=== PATIENT | male | born 1960 | race Caucasian/White ===

== ENCOUNTER 2024-05-27 21:08 | Inpatient (IN) | payer MEDICAID, OTHER ==
[~2024-05-27] VITALS: Ht 152.4 cm; Wt 58.5 kg
[2024-05-27 21:29] VITALS: BP_SYST 138; PULSE 92; RESP 20; TEMP 97.8; O2SAT 100
[2024-05-27 21:49] LABS: BASOPHILS # (AUTO) 0.1 K/uL (0.0-0.2); BASOPHILS % (AUTO) 1.1 % (0.0-2.0); EOSINOPHILS # (AUTO) 0.2 K/uL (0.0-0.4); EOSINOPHILS % (AUTO) 2.1 % (0.0-4.0); HEMATOCRIT 32.6 % (36-54); HEMOGLOBIN 10.8 g/dL (14.0-18.0); LYMPHOCYTES # (AUTO) 1.6 K/uL (1.0-5.5); LYMPHOCYTES % (AUTO) 16.3 % (20.5-51.5); MEAN CORPUSCULAR HEMOGLOBIN 34 pg (27-31); MEAN CORPUSCULAR HGB CONC 33 % (32-36); MEAN CORPUSCULAR VOLUME 101 fL (79.0-98.0); MONOCYTES # (AUTO) 0.8 K/uL (0.0-1.0); MONOCYTES % (AUTO) 8.5 % (1.7-9.3); NEUTROPHILS # (AUTO) 7.1 K/uL (1.8-7.7); PLATELET COUNT (AUTO) 178 K/uL (130-430); RED BLOOD CELL COUNT(AUTO) 3.22 MIL/uL (4.2-6.2); RED CELL DISTRIBUTION WIDTH 18.1 % (9.0-15.0); WHITE BLOOD COUNT (AUTO) 9.9 K/uL (4.8-10.8)
[2024-05-27 22:10] LABS: ANION GAP 7 (5-15); CALCIUM 8.9 mg/dL (8.4-11.0); CARBON DIOXIDE 31 mmol/L (23-29); CHLORIDE 98 mmol/L (98-107); GFR AFRICAN AMERICAN 21 mL/min (>90); GLUCOSE 135 mg/dL (74-106); POTASSIUM 3.9 mmol/L (3.5-5.1); SODIUM SERUM 136 mmol/L (136-145); UREA NITROGEN, BLOOD 55 mg/dL (8-21)
[2024-05-27 22:20] LABS: GFR NON AFRICAN-AMERICAN 18 mL/min (>90)
[2024-05-27 23:00] VITALS: BP_SYST 91; PULSE 98
[2024-05-28] VITALS (17 sets, daily range): BP systolic 91–146; PULSE 81–98; RESP 16–18; TEMP 96.3–98; O2SAT 97–99
[2024-05-28] MEDS ORDERED: HYDROcodone/ACETAMIN 5-325 MG TAB (NORCO/ VICODIN) PO PRN (00:15)
[2024-05-28] MEDS ORDERED: hydrALAZINE HCL 20 MG/ML VIAL IVP PRN (00:15)
[2024-05-28] MEDS ORDERED: ONDANSETRON HCL 4 MG/2 ML VIAL IVP PRN (00:15)
[2024-05-28] MEDS ORDERED: HYDROcodone/ACETAMIN 10-325 MG TAB PO PRN (00:15)
[2024-05-28] MEDS ORDERED: ACETAMINOPHEN 325 MG TABLET PO PRN (00:15)
[2024-05-28] MEDS: ALBUTEROL SULFATE 0.083% 2.5 MG/3 ML VIAL.NEB INH PRN (00:44)
[2024-05-28] MEDS ORDERED: BISA-140 GT (08:35)
[2024-05-28] MEDS ORDERED: LORA-258 GT (08:35)
[2024-05-28] MEDS ORDERED: IPRA3AMP9 INH ×2 (08:35)
[2024-05-28] MEDS ORDERED: HYDR-2923 GT (08:35)
[2024-05-28] MEDS ORDERED: SSNOVOLOG SUBCUT (08:35)
[2024-05-28] MEDS ORDERED: SACC250C3 GT (08:35)
[2024-05-28] MEDS ORDERED: ASCO500T20 GT (08:35)
[2024-05-28] MEDS ORDERED: ACET325T GT (08:35)
[2024-05-28] MEDS ORDERED: FAMO40SU5 GT (08:35)
[2024-05-28] MEDS ORDERED: TYLL650 GT (08:35)
[2024-05-28] MEDS ORDERED: NITSL SL (08:35)
[2024-05-28] MEDS ORDERED: ZINC100T2 GT (08:35)
[2024-05-28] MEDS ORDERED: HEPA500015 SUBCUT (08:35)
[2024-05-28] MEDS ORDERED: REGL10 GT (08:35)
[2024-05-28] MEDS ORDERED: ONDA-8 GT (08:35)
[2024-05-28] MEDS ORDERED: GLUC1KIT IM (08:35)
[2024-05-28] MEDS ORDERED: FURO40TA5 GT (08:35)
[2024-05-28] MEDS ORDERED: NEPH GT (08:35)
[2024-05-28] MEDS ORDERED: HYDR-3917 GT (08:35)
[2024-05-28] MEDS ORDERED: POLY17PO4 GT (08:35)
[2024-05-28] MEDS ORDERED: LACT10SO6 GT (08:35)
[2024-05-28] MEDS ORDERED: AMIN30LI2 GT (08:35)
[2024-05-28] MEDS ORDERED: CHLO473M5 PO (08:35)
[2024-05-28] MEDS ORDERED: BISACODYL 5 MG TABLET.DR (DULCOLAX) GT PRN (09:30)
[2024-05-28] MEDS ORDERED: LORazepam 1 MG TABLET GT PRN (09:30)
[2024-05-28 11:23] LABS: BASOPHILS % (AUTO) 0.3 % (0.0-2.0); EOSINOPHILS % (AUTO) 0.3 % (0.0-4.0); HEMATOCRIT 33.9 % (36-54); LYMPHOCYTES # (AUTO) 1.3 K/uL (1.0-5.5); LYMPHOCYTES % (AUTO) 13.7 % (20.5-51.5); MEAN CORPUSCULAR HEMOGLOBIN 33 pg (27-31); MEAN CORPUSCULAR HGB CONC 32 % (32-36); MEAN CORPUSCULAR VOLUME 102 fL (79.0-98.0); MONOCYTES # (AUTO) 0.8 K/uL (0.0-1.0); MONOCYTES % (AUTO) 8.1 % (1.7-9.3); NEUTROPHILS # (AUTO) 7.6 K/uL (1.8-7.7); NEUTROPHILS % (AUTO) 77.6 % (40.0-70.0); PLATELET COUNT (AUTO) 188 K/uL (130-430); RED BLOOD CELL COUNT(AUTO) 3.32 MIL/uL (4.2-6.2); RED CELL DISTRIBUTION WIDTH 17.6 % (9.0-15.0); WHITE BLOOD COUNT (AUTO) 9.7 K/uL (4.8-10.8)
[2024-05-28 11:41] LABS: ALBUMIN 2.3 g/dL (3.4-4.8); CALCIUM 8.8 mg/dL (8.4-11.0); CREATININE 4.11 mg/dL (0.55-1.30); POTASSIUM 4.2 mmol/L (3.5-5.1); TOTAL BILIRUBIN 0.4 mg/dL (0.0-1.0); TOTAL PROTEIN, SERUM 7.7 g/dL (6.4-8.3)
[2024-05-28] MEDS: FUROSEMIDE 40 MG TABLET GT ONE (12:26)
[2024-05-29] VITALS (19 sets, daily range): BP systolic 98–162; PULSE 77–100; RESP 14–20; TEMP 97.1–98.4; O2SAT 97–100
[2024-05-29 06:15] LABS: BASOPHILS % (AUTO) 0.2 % (0.0-2.0); HEMATOCRIT 32.7 % (36-54); HEMOGLOBIN 10.6 g/dL (14.0-18.0); LYMPHOCYTES # (AUTO) 0.9 K/uL (1.0-5.5); LYMPHOCYTES % (AUTO) 8.8 % (20.5-51.5); MEAN CORPUSCULAR HEMOGLOBIN 33 pg (27-31); MEAN CORPUSCULAR HGB CONC 32 % (32-36); MEAN CORPUSCULAR VOLUME 102 fL (79.0-98.0); MONOCYTES # (AUTO) 0.4 K/uL (0.0-1.0); MONOCYTES % (AUTO) 3.9 % (1.7-9.3); NEUTROPHILS % (AUTO) 87.1 % (40.0-70.0); PLATELET COUNT (AUTO) 193 K/uL (130-430); RED CELL DISTRIBUTION WIDTH 17.7 % (9.0-15.0); WHITE BLOOD COUNT (AUTO) 10.3 K/uL (4.8-10.8)
[2024-05-29 06:50] LABS: ALBUMIN 2.2 g/dL (3.4-4.8); CALCIUM 8.8 mg/dL (8.4-11.0); CREATININE 2.97 mg/dL (0.55-1.30); POTASSIUM 4.8 mmol/L (3.5-5.1); TOTAL BILIRUBIN 0.3 mg/dL (0.0-1.0); TOTAL PROTEIN, SERUM 7.6 g/dL (6.4-8.3)
[2024-05-29] MEDS: FUROSEMIDE 40 MG TABLET GT SCH (10:34)
[2024-05-30] VITALS (22 sets, daily range): BP systolic 103–154; PULSE 69–94; RESP 14–20; TEMP 97.5–98.6; O2SAT 95–100
[2024-05-30] MEDS: BALSAM PERU/CASTOR OIL 56.7 GM OINT...G. TP SCH (08:29)
[2024-05-30] MEDS ORDERED: *HEPARIN PER PHARMACY XX ONE ×4 (14:00→14:45)
[2024-05-30] MEDS: ALBUMIN HUMAN 25% 200 ML IV ONE (14:33)
[2024-05-30] MEDS: HEPARIN SODIUM, PORCINE 10,000 UNITS/ 10 ML VIAL MC ONE ×2 (15:45→15:46)
[2024-05-31] VITALS (10 sets, daily range): BP systolic 120–146; PULSE 80–94; RESP 14–20; TEMP 97.3–98; O2SAT 96–99
== END 2024-05-31 13:00 | DRG 208 ==
LOC: SED 21:08 → SMU 05-28 00:03 → STU 05-28 09:03
PROVIDERS: ADMIT Family Medicine; ATTEND Family Medicine
PROC: 5A1D70Z Performance of Urinary Filtration, Intermittent, Less than 6 Hours Per Day (ICD-10-PCS; 2024-05-28)
PROC: 5A1945Z Respiratory Ventilation, 24-96 Consecutive Hours (ICD-10-PCS; principal; 2024-05-29)
PROC: 5A1D70Z Performance of Urinary Filtration, Intermittent, Less than 6 Hours Per Day (ICD-10-PCS; 2024-05-30)
DX: J96.21 Acute and chronic respiratory failure with hypoxia (principal); I21.A1 Myocardial infarction type 2; N18.6 End stage renal disease; I13.2 Hypertensive heart and chronic kidney disease with heart failure and with stage 5 chronic kidney disease, or end stage renal disease; Z99.11 Dependence on respirator [ventilator] status; E66.9 Obesity, unspecified; R13.10 Dysphagia, unspecified; I50.9 Heart failure, unspecified; E11.22 Type 2 diabetes mellitus with diabetic chronic kidney disease; D63.1 Anemia in chronic kidney disease; E11.51 Type 2 diabetes mellitus with diabetic peripheral angiopathy without gangrene; E88.09 Other disorders of plasma-protein metabolism, not elsewhere classified; Z20.822 Contact with and (suspected) exposure to COVID-19; E87.70 Fluid overload, unspecified; E11.65 Type 2 diabetes mellitus with hyperglycemia; Z99.2 Dependence on renal dialysis; Z93.1 Gastrostomy status; Z59.82 Transportation insecurity; Z79.4 Long term (current) use of insulin; Z79.899 Other long term (current) drug therapy; Z68.32 Body mass index [BMI] 32.0-32.9, adult; Z89.612 Acquired absence of left leg above knee; Z89.611 Acquired absence of right leg above knee; Z93.0 Tracheostomy status; Z74.01 Bed confinement status
CPT/HCPCS: 36415; 71045; 80048; 80053; 82948; 83037; 83880; 84484; 85025; 87081; 90935; 90937; 93005; 94002; 94003; 94070; 94640; 94760; 99285; G0378; J1644